=== PATIENT | female | born 1980 | race Caucasian/White ===

== ENCOUNTER 2017-09-05 17:08 | Emergency (ER) | payer BC ==
[~2017-09-05] VITALS: Ht 182.9 cm; Wt 111.0 kg
[~2017-09-05 17:08] MED LIST: ATARAX,VISTARIL25 MG PO; CLARITIN,ALAVAR10 MG PO; CLINDAMYCIN HC300 MG PO; LORTAB 5-325 M1 EACH PO; PREDNISONE10 M1 PO; TRAMADOL HCL50 MG PO
[2017-09-05 17:50] LABS: HEMATOCRIT 37.2 % (36.0-46.0); MCH 29.9 PG (29.0-34.0); MCHC 34.1 G/DL (30.0-36.0); MCV 87.5 FL (83-99); MEAN PLAT.VOLUME 9.5 uM^3 (9.5-12.4); PLATELET COUNT 197 K/uL (156-360); RBC DIS.WIDTH-CV 12.5 % (11.8-14.6); RED BLOOD COUNT 4.25 M/uL (3.80-5.20); WHITE BLOOD COUNT 7.5 K/uL (4.1-10.2)
[2017-09-05 17:58] LABS: CHLORIDE 105 mEq/L (99-109); POTASSIUM 3.7 mEq/L (3.7-5.4); SODIUM 136 mEq/L (136-147)
[2017-09-05 18:00] LABS: GLUCOSE 100 mg/dL (70-99)
[2017-09-05 18:01] LABS: ANION GAP 7 MEQ/L (2-14)
[2017-09-05 18:04] LABS: GFR ESTIMATE (CALCULATED) > 59 mL/min/
[2017-09-05 18:05] LABS: UREA NITROGEN (BUN) 14 mg/dL (9-23)
[2017-09-05 18:12] LABS: TROP-I INTERPRETATION NEGATIVE; TROPONIN-I < 0.01 ng/mL (0.0-0.30)
[2017-09-05 18:35] LABS: INFLUENZA A VIRAL ANTIGEN NEGATIVE; INFLUENZA B VIRAL ANTIGEN NEGATIVE
[2017-09-05] MEDS ORDERED: ZOFRAN ODT4 MG PO (18:59)
[2017-09-05] MEDS ORDERED: MOTRIN800 MG PO (18:59)
[2017-09-05 21:35] VITALS: BP 129/74
== END 2017-09-05 21:37 | disposition home or self-care (01) ==
LOC: EME 17:08
PROVIDERS: Nurse Practitioner Family
DX: B34.9 Viral infection, unspecified (principal); M94.0 Chondrocostal junction syndrome [Tietze]; R50.9 Fever, unspecified; R06.02 Shortness of breath; J02.9 Acute pharyngitis, unspecified; R11.0 Nausea; R00.0 Tachycardia, unspecified; R16.1 Splenomegaly, not elsewhere classified; R79.1 Abnormal coagulation profile
CPT/HCPCS: 71020; 71275; 80048; 84484; 85027; 85379; 87502; 93005; 99281; 99285; J1885; J2405; J7030

== ENCOUNTER 2018-04-03 01:44 | Emergency (ER) | payer BC ==
[~2018-04-03] VITALS: Ht 182.9 cm; Wt 116.7 kg
[~2018-04-03 01:44] MED LIST changes: +MOTRIN800 MG PO; +ZOFRAN ODT4 MG PO
[2018-04-03 01:51] VITALS: BP 141/85
[2018-04-03] MEDS ORDERED: PERCOCET 5/31 TABLET PO (02:03)
== END 2018-04-03 02:39 | disposition home or self-care (01) ==
LOC: EME 01:44
DX: B08.4 Enteroviral vesicular stomatitis with exanthem (principal)
CPT/HCPCS: 99281; 99283